=== PATIENT | male | born 1980 | race African-American/Black ===

== ENCOUNTER 2017-02-20 19:33 | Emergency (ER) | payer MEDICAID ==
[~2017-02-20] VITALS: Ht 170.2 cm; Wt 82.0 kg
[2017-02-20] MEDS ORDERED: KETOROLAC 30MG/ML VIAL IV STA (20:02)
[2017-02-20] MEDS ORDERED: ONDANSETRON HCL 4MG/2ML VIAL IV STA (20:02)
[2017-02-20] MEDS ORDERED: SODIUM CHLORIDE 0.9% 1,000 ML IV ONE (20:02)
[2017-02-20 20:22] LABS: BASOPHILS % 1.4 % (0.0-2.0); EOSINOPHILS % 3.3 % (0.0-5.0); HEMOGLOBIN. 12.5 g/dL (14.0-18.0); LYMPHOCYTES % 18.5 % (20.0-50.0); MEAN CORPUSCULAR HEMOGLOBIN 31.7 pg (28.0-32.0); MEAN CORPUSCULAR HGB CONC 33.7 g/dL (31.0-37.0); MEAN CORPUSCULAR VOLUME 93.9 fL (80.0-94.0); MEAN PLATELET VOLUME 7.7 fl (7.4-10.4); MONOCYTES % 8.6 % (2.0-8.0); NEUTROPHILS % 68.2 % (40.0-76.0); PLATELET 250 x1000/uL (130-400); RED BLOOD CELL COUNT 3.94 mill/uL (4.7-6.1); RED CELL DISTRIBUTION WIDTH 13.7 % (11.6-14.6); WHITE BLOOD COUNT 7.7 x1000/uL (4.5-11.0)
[2017-02-20 20:25] LABS: CHLORIDE 106 mEq/L (98-107); INDEX HEMOLYSI 1 (1-3); INDEX ICTERIC 1 (1-4); INDEX LIPEMIC 1 (1-3)
[2017-02-20 20:28] LABS: PROTHROMBIN TIME 10.6 sec
[2017-02-20 20:30] LABS: ALBUMIN 3.3 g/dL (3.4-5.0); ANION GAP 11; CALCIUM 8.6 mg/dL (8.5-10.1); CARBON DIOXIDE 29 mEq/L (21-32); UREA NITROGEN BLOOD 10 mg/dL (7-21)
[2017-02-20 20:35] LABS: ALANINE AMINOTRANSFERASE 132 IU/L (13-61); eGFR > 60 mL/min (>60)
[2017-02-20 22:01] VITALS: BP 128/96
== END 2017-02-21 01:34 | disposition home or self-care (01) ==
LOC: ER 19:34
DX: R51 Headache (principal); R07.89 Other chest pain; I10 Essential (primary) hypertension; Z88.6 Allergy status to analgesic agent
CPT/HCPCS: 36415; 70450; 71010; 80053; 85025; 85610; 93005; 96361; 96374; 96375; 99285; J1885; J2405; J7030; Z7610

== ENCOUNTER 2017-02-28 16:52 | Emergency (ER) | payer MEDICAID ==
[~2017-02-28] VITALS: Ht 170.2 cm; Wt 75.0 kg
[2017-02-28] MEDS ORDERED: KETOROLAC 60MG/2ML VIAL IM ONE (17:45)
[2017-02-28 18:05] VITALS: BP 116/83
[2017-02-28] MEDS ORDERED: CYCLOBENZAPRINE 10MG TABLET PO ONE (18:15)
[2017-02-28] MEDS ORDERED: CYCLOBENZAPRINE 10MG TABLET PO SCH (22:00)
== END 2017-02-28 19:45 | disposition home or self-care (01) ==
LOC: ER 16:53
DX: S16.1XXA Strain of muscle, fascia and tendon at neck level, initial encounter (principal); I10 Essential (primary) hypertension; X58.XXXA Exposure to other specified factors, initial encounter; Y93.89 Activity, other specified; Y99.8 Other external cause status; Y92.89 Other specified places as the place of occurrence of the external cause; Z88.6 Allergy status to analgesic agent
CPT/HCPCS: 96372; 99283; J1885

== ENCOUNTER 2017-03-13 09:45 | Emergency (ER) | payer MEDICAID ==
[~2017-03-13] VITALS: Ht 175.3 cm; Wt 75.0 kg
[2017-03-13] MEDS ORDERED: SODIUM CHLORIDE 0.9% 1,000 ML IV ONE (10:06)
[2017-03-13] MEDS ORDERED: DIPHENHYDRAMINE 25MG CAPSULE PO ONE (10:15)
[2017-03-13] MEDS ORDERED: PROCHLORPERAZINE MALEATE 10MG TABLET PO ONE (10:15)
[2017-03-13 10:24] LABS: BASOPHILS % 1.1 % (0.0-2.0); EOSINOPHILS % 2.1 % (0.0-5.0); HEMATOCRIT. 38.3 % (42.0-52.0); HEMOGLOBIN. 13.2 g/dL (14.0-18.0); LYMPHOCYTES % 15.5 % (20.0-50.0); MEAN CORPUSCULAR HEMOGLOBIN 32.2 pg (28.0-32.0); MEAN CORPUSCULAR HGB CONC 34.4 g/dL (31.0-37.0); MEAN CORPUSCULAR VOLUME 93.6 fL (80.0-94.0); MEAN PLATELET VOLUME 7.5 fl (7.4-10.4); MONOCYTES % 12.2 % (2.0-8.0); NEUTROPHILS % 69.1 % (40.0-76.0); PLATELET 216 x1000/uL (130-400); RED BLOOD CELL COUNT 4.08 mill/uL (4.7-6.1); RED CELL DISTRIBUTION WIDTH 13.8 % (11.6-14.6); WHITE BLOOD COUNT 5.5 x1000/uL (4.5-11.0)
[2017-03-13 10:33] LABS: PROTHROMBIN TIME 10.6 sec
[2017-03-13 10:41] LABS: ALANINE AMINOTRANSFERASE 51 IU/L (13-61); ALBUMIN 3.5 g/dL (3.4-5.0); ANION GAP 11; CALCIUM 8.8 mg/dL (8.5-10.1); CARBON DIOXIDE 29 mEq/L (21-32); CHLORIDE 105 mEq/L (98-107); INDEX HEMOLYSI 1 (1-3); INDEX ICTERIC 1 (1-4); INDEX LIPEMIC 1 (1-3); NT PRO B-TYPE NATRIURETIC PEP 18 pg/mL (5-125); TROPONIN I < 0.02 ng/mL (0.00-0.04); UREA NITROGEN BLOOD 9 mg/dL (7-21); eGFR > 60 mL/min (>60)
[2017-03-13 10:57] LABS: CLARITY URINE CLEAR (CLEAR); COLOR URINE YELLOW (YELLOW); GLUCOSE URINE NEGATIVE (NEGATIVE); KETONES URINE NEGATIVE (NEGATIVE); LEUKOCYTE ESTERASE URINE NEGATIVE (NEGATIVE); NITRITE URINE NEGATIVE (NEGATIVE); OCCULT BLOOD URINE NEGATIVE (NEGATIVE); PH URINE 6.5 (4.5-8.0); PROTEIN URINE NEGATIVE (NEGATIVE); SPECIFIC GRAVITY URINE 1.006 (1.005-1.030); UROBILINOGEN URINE 0.2 E.U./dL (0.2-1.0)
[2017-03-13] MEDS ORDERED: KETOROLAC 30MG/ML VIAL IV ONE (12:15)
[2017-03-13 13:34] VITALS: BP 128/67
== END 2017-03-13 13:48 | disposition home or self-care (01) ==
LOC: ER 10:02
DX: R51 Headache (principal); R53.1 Weakness; I10 Essential (primary) hypertension; H53.8 Other visual disturbances; R05 Cough; F17.200 Nicotine dependence, unspecified, uncomplicated; Z88.6 Allergy status to analgesic agent
CPT/HCPCS: 36415; 70450; 71010; 80053; 81003; 83880; 84484; 85025; 85610; 93005; 96361; 96374; 99285; J1885; J7030; Z7610; Q0163; Q0164

== ENCOUNTER 2017-03-14 16:07 | Emergency (ER) | payer MEDICAID ==
[~2017-03-14] VITALS: Ht 175.3 cm; Wt 75.0 kg
[2017-03-14] MEDS ORDERED: SODIUM CHLORIDE 0.9% 1,000 ML IV ONE (19:36)
[2017-03-14 19:56] LABS: BASOPHILS % 1.1 % (0.0-2.0); EOSINOPHILS % 1.4 % (0.0-5.0); HEMATOCRIT. 39.2 % (42.0-52.0); HEMOGLOBIN. 13.4 g/dL (14.0-18.0); LYMPHOCYTES % 21.9 % (20.0-50.0); MEAN CORPUSCULAR HGB CONC 34.3 g/dL (31.0-37.0); MEAN CORPUSCULAR VOLUME 93.3 fL (80.0-94.0); MONOCYTES % 10.5 % (2.0-8.0); NEUTROPHILS % 65.1 % (40.0-76.0); PLATELET 206 x1000/uL (130-400); RED CELL DISTRIBUTION WIDTH 13.7 % (11.6-14.6); WHITE BLOOD COUNT 6.4 x1000/uL (4.5-11.0)
[2017-03-14 19:59] LABS: CHLORIDE 107 mEq/L (98-107); INDEX HEMOLYSI 1 (1-3); INDEX ICTERIC 1 (1-4); INDEX LIPEMIC 1 (1-3)
[2017-03-14 20:04] LABS: ANION GAP 15; CARBON DIOXIDE 25 mEq/L (21-32); UREA NITROGEN BLOOD 10 mg/dL (7-21); eGFR > 60 mL/min (>60)
[2017-03-14] MEDS ORDERED: ACETAMINOPHEN 325MG TABLET PO ONE (21:30)
[2017-03-14 22:10] LABS: CLARITY URINE CLEAR (CLEAR); COLOR URINE YELLOW (YELLOW); GLUCOSE URINE NEGATIVE (NEGATIVE); KETONES URINE NEGATIVE (NEGATIVE); LEUKOCYTE ESTERASE URINE NEGATIVE (NEGATIVE); NITRITE URINE NEGATIVE (NEGATIVE); OCCULT BLOOD URINE NEGATIVE (NEGATIVE); PROTEIN URINE NEGATIVE (NEGATIVE); SPECIFIC GRAVITY URINE 1.007 (1.005-1.030); UROBILINOGEN URINE 0.2 E.U./dL (0.2-1.0)
[2017-03-14 22:27] LABS: *AMPHETAMINES SCREEN URINE NEGATIVE (NEGATIVE); *BARBITURATES SCREEN URINE NEGATIVE (NEGATIVE); *BENZODIAZEPINES SCREEN URINE NEGATIVE (NEGATIVE); *COCAINE SCREEN URINE NEGATIVE (NEGATIVE); CANNABINOID URINE SCREEN NEGATIVE (NEGATIVE); ECSTASY MDMA SCREEN URINE NEGATIVE (NEGATIVE); METHADONE URINE SCREEN NEGATIVE (NEGATIVE); OPIATES URINE SCREEN NEGATIVE (NEGATIVE); PHENCYCLIDINE URINE SCREEN NEGATIVE (NEGATIVE)
[2017-03-14 23:00] VITALS: BP 148/99
== END 2017-03-14 23:15 | disposition home or self-care (01) ==
LOC: ER 16:35
DX: R42 Dizziness and giddiness (principal); R53.1 Weakness; R35.8 Other polyuria; I10 Essential (primary) hypertension; Z88.6 Allergy status to analgesic agent
CPT/HCPCS: 36415; 71010; 80048; 80305; 81003; 82962; 85025; 93005; 99285; J7030

== ENCOUNTER 2017-03-31 21:07 | Emergency (ER) | payer MEDICAID ==
[~2017-03-31] VITALS: Ht 175.3 cm; Wt 75.0 kg
[2017-03-31] MEDS ORDERED: SODIUM CHLORIDE 0.9% 1,000 ML IV ONE (22:54)
[2017-03-31] MEDS ORDERED: HYDROCODONE/ACETAMINOPHEN 5/325MG TABLET PO ONE (23:00)
[2017-03-31 23:08] LABS: BASOPHILS % 0.9 % (0.0-2.0); EOSINOPHILS % 1.8 % (0.0-5.0); HEMATOCRIT. 37.7 % (42.0-52.0); MEAN CORPUSCULAR HEMOGLOBIN 32.3 pg (28.0-32.0); MEAN CORPUSCULAR HGB CONC 34.4 g/dL (31.0-37.0); MEAN CORPUSCULAR VOLUME 93.8 fL (80.0-94.0); MEAN PLATELET VOLUME 7.4 fl (7.4-10.4); MONOCYTES % 10.5 % (2.0-8.0); NEUTROPHILS % 72.8 % (40.0-76.0); PLATELET 251 x1000/uL (130-400); RED BLOOD CELL COUNT 4.02 mill/uL (4.7-6.1); RED CELL DISTRIBUTION WIDTH 14.7 % (11.6-14.6); WHITE BLOOD COUNT 8.9 x1000/uL (4.5-11.0)
[2017-03-31 23:13] LABS: CHLORIDE 104 mEq/L (98-107); INDEX HEMOLYSI 1 (1-3); INDEX ICTERIC 1 (1-4); INDEX LIPEMIC 1 (1-3)
[2017-03-31 23:21] LABS: ALANINE AMINOTRANSFERASE 51 IU/L (13-61); ALBUMIN 3.7 g/dL (3.4-5.0); ANION GAP 11; CALCIUM 8.4 mg/dL (8.5-10.1); CARBON DIOXIDE 30 mEq/L (21-32); UREA NITROGEN BLOOD 9 mg/dL (7-21); eGFR > 60 mL/min (>60)
[2017-03-31 23:57] LABS: *AMPHETAMINES SCREEN URINE NEGATIVE (NEGATIVE); *BARBITURATES SCREEN URINE NEGATIVE (NEGATIVE); *BENZODIAZEPINES SCREEN URINE NEGATIVE (NEGATIVE); *COCAINE SCREEN URINE NEGATIVE (NEGATIVE); CANNABINOID URINE SCREEN NEGATIVE (NEGATIVE); ECSTASY MDMA SCREEN URINE NEGATIVE (NEGATIVE); METHADONE URINE SCREEN NEGATIVE (NEGATIVE); OPIATES URINE SCREEN NEGATIVE (NEGATIVE); PHENCYCLIDINE URINE SCREEN NEGATIVE (NEGATIVE)
[2017-04-01] MEDS ORDERED: TRAMADOL 50MG TABLET PO ONE (02:15)
[2017-04-01 02:44] VITALS: BP 153/98
[2017-04-05] MEDS ORDERED: LORA1TAB PO (01:35)
[2017-04-05] MEDS ORDERED: FERR-63 PO (01:35)
[2017-04-05] MEDS ORDERED: LISI10TA5 PO (01:35)
== END 2017-04-01 03:17 | disposition home or self-care (01) ==
LOC: ER 21:08
DX: S13.9XXA Sprain of joints and ligaments of unspecified parts of neck, initial encounter (principal); I10 Essential (primary) hypertension; F17.210 Nicotine dependence, cigarettes, uncomplicated; Z88.6 Allergy status to analgesic agent; X58.XXXA Exposure to other specified factors, initial encounter; Y92.018 Other place in single-family (private) house as the place of occurrence of the external cause
CPT/HCPCS: 36415; 70450; 72125; 80053; 80305; 85025; 93005; 96360; 99285; J7030

== ENCOUNTER 2017-05-07 23:59 | Emergency (ER) | payer MEDICAID ==
[~2017-05-07] VITALS: Ht 175.3 cm; Wt 78.0 kg
[~2017-05-07 23:59] MED LIST: FERR-63 PO; LISI10TA5 PO; LORA1TAB PO
[2017-05-08] MEDS ORDERED: IBUPROFEN 600MG TABLET PO STA (00:30)
[2017-05-08 00:59] LABS: BASOPHILS % 1.3 % (0.0-2.0); EOSINOPHILS % 1.8 % (0.0-5.0); HEMATOCRIT. 39.8 % (42.0-52.0); HEMOGLOBIN. 13.7 g/dL (14.0-18.0); MEAN CORPUSCULAR HEMOGLOBIN 32.3 pg (28.0-32.0); MEAN PLATELET VOLUME 7.2 fl (7.4-10.4); MONOCYTES % 9.5 % (2.0-8.0); NEUTROPHILS % 71.4 % (40.0-76.0); PLATELET 349 x1000/uL (130-400); RED BLOOD CELL COUNT 4.23 mill/uL (4.7-6.1); RED CELL DISTRIBUTION WIDTH 14.7 % (11.6-14.6)
[2017-05-08 01:03] LABS: INR 1.1
[2017-05-08 01:09] LABS: CARBON DIOXIDE 30 mEq/L (21-32); CHLORIDE 104 mEq/L (98-107)
[2017-05-08 03:14] VITALS: BP 148/98
== END 2017-05-08 03:14 | disposition home or self-care (01) ==
LOC: ER 23:59
DX: R07.89 Other chest pain (principal); R51 Headache; F41.9 Anxiety disorder, unspecified; I10 Essential (primary) hypertension; Z88.6 Allergy status to analgesic agent; Z87.891 Personal history of nicotine dependence
CPT/HCPCS: 36415; 70450; 71010; 80053; 85025; 85610; 93005; 99285; Z7610

== ENCOUNTER 2017-05-08 03:33 | Emergency (ER) | payer MEDICAID ==
[~2017-05-08] VITALS: Ht 175.3 cm; Wt 79.0 kg
[2017-05-08 03:50] VITALS: BP 134/77
== END 2017-05-08 07:19 | disposition home or self-care (01) ==
LOC: ER 07:15
DX: R07.89 Other chest pain (principal); R51 Headache; F17.200 Nicotine dependence, unspecified, uncomplicated; I10 Essential (primary) hypertension; Z88.8 Allergy status to other drugs, medicaments and biological substances
CPT/HCPCS: 93005; 99283

== ENCOUNTER 2017-05-08 20:28 | Emergency (ER) | payer MEDICAID ==
[~2017-05-08] VITALS: Ht 170.2 cm; Wt 80.0 kg
[2017-05-08] MEDS ORDERED: SODIUM CHLORIDE 0.9% 1,000 ML IV ONE (21:16)
[2017-05-08] MEDS ORDERED: KETOROLAC 30MG/ML VIAL IV STA (21:16)
[2017-05-08] MEDS ORDERED: ASPIRIN 81MG TABLET PO ONE (21:30)
[2017-05-08] MEDS ORDERED: NITROGLYCERIN OINT 1GM/INCH UDPKT TD ONE (21:30)
[2017-05-08 21:45] LABS: BASOPHILS % 1.1 % (0.0-2.0); EOSINOPHILS % 2.3 % (0.0-5.0); HEMATOCRIT. 36.7 % (42.0-52.0); HEMOGLOBIN. 12.6 g/dL (14.0-18.0); LYMPHOCYTES % 15.6 % (20.0-50.0); MEAN CORPUSCULAR HEMOGLOBIN 32.7 pg (28.0-32.0); MEAN PLATELET VOLUME 7.2 fl (7.4-10.4); MONOCYTES % 10.5 % (2.0-8.0); NEUTROPHILS % 70.5 % (40.0-76.0); PLATELET 296 x1000/uL (130-400); RED BLOOD CELL COUNT 3.87 mill/uL (4.7-6.1); RED CELL DISTRIBUTION WIDTH 14.7 % (11.6-14.6)
[2017-05-08 21:50] LABS: CHLORIDE 106 mEq/L (98-107)
[2017-05-08 21:52] LABS: CARBON DIOXIDE 30 mEq/L (21-32)
[2017-05-08 21:53] LABS: D-DIMER < 0.19 mg/L FEU (<0.50); PROTHROMBIN TIME 10.7 sec
[2017-05-08 21:57] LABS: ETHANOL BLOOD < 10 mg/dL
[2017-05-08 21:59] LABS: TROPONIN I < 0.02 ng/mL (0.00-0.04)
[2017-05-08 22:00] LABS: *AMPHETAMINES SCREEN URINE NEGATIVE (NEGATIVE); *BARBITURATES SCREEN URINE NEGATIVE (NEGATIVE); *BENZODIAZEPINES SCREEN URINE NEGATIVE (NEGATIVE); *COCAINE SCREEN URINE NEGATIVE (NEGATIVE); CANNABINOID URINE SCREEN NEGATIVE (NEGATIVE); METHADONE URINE SCREEN NEGATIVE (NEGATIVE); OPIATES URINE SCREEN NEGATIVE (NEGATIVE); PHENCYCLIDINE URINE SCREEN NEGATIVE (NEGATIVE)
[2017-05-08 23:00] VITALS: BP 158/71
== END 2017-05-09 00:30 | disposition home or self-care (01) ==
LOC: ER 20:42
DX: R07.9 Chest pain, unspecified (principal); I10 Essential (primary) hypertension
CPT/HCPCS: 36415; 71010; 80053; 80305; 83690; 83880; 84484; 85025; 85379; 85610; 93005; 96361; 96374; 99285; G0482; J1885; J7030; Z7610

== ENCOUNTER 2017-05-09 11:08 | Emergency (ER) | payer MEDICAID ==
[~2017-05-09] VITALS: Ht 172.7 cm; Wt 75.0 kg
[2017-05-09] MEDS ORDERED: IBUPROFEN 600MG TABLET PO STA (11:27)
[2017-05-09 12:01] LABS: EOSINOPHILS % 1.2 % (0.0-5.0); HEMATOCRIT. 39.5 % (42.0-52.0); HEMOGLOBIN. 13.5 g/dL (14.0-18.0); MEAN CORPUSCULAR HEMOGLOBIN 32.5 pg (28.0-32.0); MEAN CORPUSCULAR VOLUME 94.9 fL (80.0-94.0); MEAN PLATELET VOLUME 6.9 fl (7.4-10.4); MONOCYTES % 8.7 % (2.0-8.0); NEUTROPHILS % 76.1 % (40.0-76.0); PLATELET 334 x1000/uL (130-400); RED BLOOD CELL COUNT 4.16 mill/uL (4.7-6.1); RED CELL DISTRIBUTION WIDTH 14.9 % (11.6-14.6)
[2017-05-09 12:14] LABS: CARBON DIOXIDE 29 mEq/L (21-32); CHLORIDE 108 mEq/L (98-107)
[2017-05-09 14:05] VITALS: BP 165/87
== END 2017-05-09 14:08 | disposition home or self-care (01) ==
LOC: ER 11:09
DX: R07.89 Other chest pain (principal); R51 Headache; I10 Essential (primary) hypertension
CPT/HCPCS: 36415; 70450; 71010; 80053; 85025; 93005; 99285

== ENCOUNTER 2017-05-10 12:03 | Inpatient (IN) | payer MEDICAID ==
[~2017-05-10] VITALS: Ht 175.3 cm; Wt 76.2 kg
[2017-05-10] MEDS ORDERED: ONDANSETRON HCL 4MG/2ML VIAL IV STA (12:58)
[2017-05-10] MEDS ORDERED: SODIUM CHLORIDE 0.9% 1,000 ML IV ONE (12:58)
[2017-05-10 13:17] LABS: BASOPHILS % 0.9 % (0.0-2.0); EOSINOPHILS % 0.7 % (0.0-5.0); HEMATOCRIT. 41.2 % (42.0-52.0); HEMOGLOBIN. 14.1 g/dL (14.0-18.0); LYMPHOCYTES % 10.1 % (20.0-50.0); MEAN CORPUSCULAR HEMOGLOBIN 32.6 pg (28.0-32.0); MONOCYTES % 7.4 % (2.0-8.0); NEUTROPHILS % 80.9 % (40.0-76.0); PLATELET 324 x1000/uL (130-400); RED BLOOD CELL COUNT 4.34 mill/uL (4.7-6.1); RED CELL DISTRIBUTION WIDTH 14.7 % (11.6-14.6)
[2017-05-10 13:21] LABS: CHLORIDE 105 mEq/L (98-107)
[2017-05-10 13:22] LABS: PROTHROMBIN TIME 10.4 sec
[2017-05-10 13:26] LABS: CARBON DIOXIDE 31 mEq/L (21-32); ETHANOL BLOOD < 10 mg/dL
[2017-05-10 13:46] LABS: CLARITY URINE CLEAR (CLEAR); COLOR URINE YELLOW (YELLOW); KETONES URINE NEGATIVE (NEGATIVE); LEUKOCYTE ESTERASE URINE NEGATIVE (NEGATIVE); NITRITE URINE NEGATIVE (NEGATIVE); OCCULT BLOOD URINE NEGATIVE (NEGATIVE); PH URINE 7.5 (4.5-8.0); PROTEIN URINE NEGATIVE (NEGATIVE); SPECIFIC GRAVITY URINE 1.017 (1.005-1.030); UROBILINOGEN URINE 0.2 E.U./dL (0.2-1.0)
[2017-05-10 14:13] LABS: *AMPHETAMINES SCREEN URINE NEGATIVE (NEGATIVE); *BARBITURATES SCREEN URINE NEGATIVE (NEGATIVE); *BENZODIAZEPINES SCREEN URINE NEGATIVE (NEGATIVE); *COCAINE SCREEN URINE NEGATIVE (NEGATIVE); CANNABINOID URINE SCREEN NEGATIVE (NEGATIVE); METHADONE URINE SCREEN NEGATIVE (NEGATIVE); OPIATES URINE SCREEN NEGATIVE (NEGATIVE); PHENCYCLIDINE URINE SCREEN NEGATIVE (NEGATIVE)
[2017-05-10 15:25] LABS: TROPONIN I < 0.02 ng/mL (0.00-0.04)
[2017-05-10] MEDS ORDERED: LORAZEPAM 0.5MG TABLET PO ONE (18:00)
[2017-05-11] MEDS: HYDROCODONE/ACETAMINOPHEN 10/325MG TABLET PO PRN ×2 (00:11→16:41)
[2017-05-11] MEDS: LORAZEPAM 1MG TABLET PO PRN ×2 (00:11→13:39)
[2017-05-11 07:01] LABS: BASOPHILS % 1.2 % (0.0-2.0); EOSINOPHILS % 2.6 % (0.0-5.0); HEMOGLOBIN. 12.6 g/dL (14.0-18.0); LYMPHOCYTES % 22.2 % (20.0-50.0); MEAN CORPUSCULAR HEMOGLOBIN 32.7 pg (28.0-32.0); MEAN CORPUSCULAR VOLUME 94.1 fL (80.0-94.0); MEAN PLATELET VOLUME 7.5 fl (7.4-10.4); MONOCYTES % 12.4 % (2.0-8.0); NEUTROPHILS % 61.6 % (40.0-76.0); PLATELET 284 x1000/uL (130-400); RED BLOOD CELL COUNT 3.86 mill/uL (4.7-6.1)
[2017-05-11 08:07] LABS: HEMATOCRIT. 37.3 % (42.0-52.0)
[2017-05-11] MEDS: ENOXAPARIN 40MG/0.4ML SYR SUBCUT SCH (09:00)
[2017-05-11] MEDS: LISINOPRIL 10MG TABLET PO SCH (09:00)
[2017-05-11] MEDS: PREDNISONE 5MG TABLET PO SCH (13:07)
[2017-05-11] MEDS: NEOMYCIN-POLYMYXIN B-HYDROCORTISONE 1% OTIC SOLN 10ML RIGHT EAR SCH ×2 (13:08→16:41)
[2017-05-11] MEDS: CYCLOBENZAPRINE 10MG TABLET PO SCH ×2 (13:39→21:20)
[2017-05-12] MEDS: NEOMYCIN-POLYMYXIN B-HYDROCORTISONE 1% OTIC SOLN 10ML RIGHT EAR SCH ×4 (00:06→17:05)
[2017-05-12] MEDS: HYDROCODONE/ACETAMINOPHEN 10/325MG TABLET PO PRN ×3 (00:06→22:14)
[2017-05-12] MEDS: LORAZEPAM 1MG TABLET PO PRN ×2 (01:16→18:40)
[2017-05-12] MEDS: CYCLOBENZAPRINE 10MG TABLET PO SCH ×3 (06:10→22:13)
[2017-05-12] MEDS: PREDNISONE 5MG TABLET PO SCH (08:13)
[2017-05-12] MEDS: LISINOPRIL 10MG TABLET PO SCH (08:14)
[2017-05-12] MEDS: ENOXAPARIN 40MG/0.4ML SYR SUBCUT SCH (08:15)
[2017-05-13] MEDS: NEOMYCIN-POLYMYXIN B-HYDROCORTISONE 1% OTIC SOLN 10ML RIGHT EAR SCH ×4 (00:38→17:26)
[2017-05-13] MEDS: HYDROCODONE/ACETAMINOPHEN 10/325MG TABLET PO PRN ×2 (05:12→20:05)
[2017-05-13] MEDS: CYCLOBENZAPRINE 10MG TABLET PO SCH ×3 (06:27→21:09)
[2017-05-13] MEDS: ENOXAPARIN 40MG/0.4ML SYR SUBCUT SCH (09:02)
[2017-05-13] MEDS: PREDNISONE 5MG TABLET PO SCH (09:02)
[2017-05-13] MEDS: LISINOPRIL 10MG TABLET PO SCH (09:02)
[2017-05-13] MEDS: LORAZEPAM 1MG TABLET PO PRN (12:50)
[2017-05-13] MEDS ORDERED: LORAZEPAM 1MG TABLET PO PRN (22:09)
[2017-05-13] MEDS: ONDANSETRON HCL 4MG/2ML VIAL IV PRN (22:17)
[2017-05-14] MEDS: NEOMYCIN-POLYMYXIN B-HYDROCORTISONE 1% OTIC SOLN 10ML RIGHT EAR SCH ×3 (00:13→05:55)
[2017-05-14] MEDS: CYCLOBENZAPRINE 10MG TABLET PO SCH (05:54)
[2017-05-14] MEDS: LISINOPRIL 10MG TABLET PO SCH (09:00)
[2017-05-14] MEDS: ENOXAPARIN 40MG/0.4ML SYR SUBCUT SCH (09:39)
[2017-05-14] MEDS: IBUPROFEN 600MG TABLET PO PRN (13:54)
[2017-05-14] MEDS ORDERED: SODIUM CHLORIDE 0.9% 1,000 ML IV ONE (14:30)
[2017-05-14] MEDS: ALPRAZOLAM 0.5 MG TABLET PO PRN (16:01)
[2017-05-14] MEDS ORDERED: HYDROCODONE/ACETAMINOPHEN 5/325MG TABLET PO PRN (16:30)
[2017-05-14] MEDS: HYDROCODONE/APAP 7.5/325MG 1 TAB TABLET PO PRN (23:09)
[2017-05-14] MEDS: LORAZEPAM 2MG/ML CPJ IV PRN (23:10)
[2017-05-15] MEDS: HYDROCODONE/APAP 7.5/325MG 1 TAB TABLET PO PRN ×3 (05:10→22:41)
[2017-05-15] MEDS: ENOXAPARIN 40MG/0.4ML SYR SUBCUT SCH (08:55)
[2017-05-15] MEDS: IBUPROFEN 600MG TABLET PO PRN ×2 (08:59→20:45)
[2017-05-15] MEDS: LORAZEPAM 2MG/ML CPJ IV PRN (17:37)
[2017-05-15] MEDS: ALPRAZOLAM 0.5 MG TABLET PO PRN (21:17)
[2017-05-16] MEDS: LORAZEPAM 2MG/ML CPJ IV PRN ×3 (04:15→21:50)
[2017-05-16] MEDS: ENOXAPARIN 40MG/0.4ML SYR SUBCUT SCH (08:38)
[2017-05-16] MEDS: HYDROCODONE/APAP 7.5/325MG 1 TAB TABLET PO PRN ×2 (12:25→19:45)
[2017-05-16] MEDS: IBUPROFEN 600MG TABLET PO PRN (17:08)
[2017-05-16] MEDS ORDERED: OFLOXACIN EACH EAR SCH (18:30)
[2017-05-17] MEDS: IBUPROFEN 600MG TABLET PO PRN ×3 (00:38→22:58)
[2017-05-17] MEDS: ALPRAZOLAM 0.5 MG TABLET PO PRN ×2 (00:42→22:57)
[2017-05-17] MEDS: HYDROCODONE/APAP 7.5/325MG 1 TAB TABLET PO PRN ×3 (03:48→19:38)
[2017-05-17] MEDS: LORAZEPAM 2MG/ML CPJ IV PRN ×2 (05:42→19:14)
[2017-05-17] MEDS: ENOXAPARIN 40MG/0.4ML SYR SUBCUT SCH (08:55)
[2017-05-17] MEDS: ONDANSETRON HCL 4MG/2ML VIAL IV PRN (19:17)
[2017-05-18] MEDS: LORAZEPAM 2MG/ML CPJ IV PRN ×2 (04:05→15:17)
[2017-05-18] MEDS: ENOXAPARIN 40MG/0.4ML SYR SUBCUT SCH (08:38)
[2017-05-18] MEDS: IBUPROFEN 600MG TABLET PO PRN ×2 (09:07→15:17)
[2017-05-18] MEDS: HYDROCODONE/APAP 7.5/325MG 1 TAB TABLET PO PRN ×2 (12:23→20:36)
[2017-05-18] MEDS: ONDANSETRON HCL 4MG/2ML VIAL IV PRN (21:23)
[2017-05-19] MEDS: IBUPROFEN 600MG TABLET PO PRN ×2 (00:01→11:25)
[2017-05-19] MEDS: ALPRAZOLAM 0.5 MG TABLET PO PRN ×2 (02:31→22:28)
[2017-05-19] MEDS: HYDROCODONE/APAP 7.5/325MG 1 TAB TABLET PO PRN ×3 (07:09→21:05)
[2017-05-19] MEDS: ENOXAPARIN 40MG/0.4ML SYR SUBCUT SCH ×2 (08:52→21:04)
[2017-05-19] MEDS: ONDANSETRON HCL 4MG/2ML VIAL IV PRN ×2 (13:15→22:16)
[2017-05-19] MEDS: LORAZEPAM 2MG/ML CPJ IV PRN ×2 (15:33)
[2017-05-19] MEDS: BACLOFEN 10MG TABLET PO SCH (21:05)
[2017-05-20] MEDS: LORAZEPAM 2MG/ML CPJ IV PRN ×2 (01:44→16:11)
[2017-05-20] MEDS: BACLOFEN 10MG TABLET PO SCH ×2 (08:06→20:57)
[2017-05-20] MEDS: IBUPROFEN 600MG TABLET PO PRN (09:43)
[2017-05-20] MEDS: DOCUSATE SODIUM 100MG CAPSULE PO SCH (09:43)
[2017-05-20 11:14] LABS: BASOPHILS % 1.1 % (0.0-2.0); EOSINOPHILS % 2.6 % (0.0-5.0); HEMATOCRIT. 39.1 % (42.0-52.0); HEMOGLOBIN. 13.5 g/dL (14.0-18.0); MEAN CORPUSCULAR HEMOGLOBIN 32.8 pg (28.0-32.0); MEAN CORPUSCULAR VOLUME 95.4 fL (80.0-94.0); MEAN PLATELET VOLUME 7.7 fl (7.4-10.4); MONOCYTES % 12.6 % (2.0-8.0); NEUTROPHILS % 70.7 % (40.0-76.0); PLATELET 234 x1000/uL (130-400); RED CELL DISTRIBUTION WIDTH 14.6 % (11.6-14.6)
[2017-05-20 11:36] LABS: CARBON DIOXIDE 30 mEq/L (21-32); CHLORIDE 105 mEq/L (98-107); TROPONIN I < 0.02 ng/mL (0.00-0.04)
[2017-05-20] MEDS: ONDANSETRON HCL 4MG/2ML VIAL IV PRN ×2 (13:41→20:48)
[2017-05-20] MEDS: HYDROCODONE/ACETAMINOPHEN 5/325MG TABLET PO PRN ×2 (13:56→21:12)
[2017-05-20] MEDS: ALPRAZOLAM 0.5 MG TABLET PO PRN (22:47)
[2017-05-21] MEDS: IBUPROFEN 600MG TABLET PO PRN ×3 (01:30→20:16)
[2017-05-21] MEDS: LORAZEPAM 2MG/ML CPJ IV PRN ×2 (04:23→16:48)
[2017-05-21] MEDS: DOCUSATE SODIUM 100MG CAPSULE PO SCH (08:35)
[2017-05-21] MEDS: ENOXAPARIN 40MG/0.4ML SYR SUBCUT SCH (08:35)
[2017-05-21] MEDS: BACLOFEN 10MG TABLET PO SCH ×2 (08:36→20:16)
[2017-05-21] MEDS: HYDROCODONE/ACETAMINOPHEN 5/325MG TABLET PO PRN ×2 (11:13→22:58)
[2017-05-21] MEDS: ONDANSETRON HCL 4MG/2ML VIAL IV PRN (20:16)
[2017-05-22] MEDS: LORAZEPAM 2MG/ML CPJ IV PRN ×2 (01:51→13:33)
[2017-05-22] MEDS: ONDANSETRON HCL 4MG/2ML VIAL IV PRN ×2 (08:31→16:36)
[2017-05-22] MEDS: BACLOFEN 10MG TABLET PO SCH ×4 (08:33→20:03)
[2017-05-22] MEDS: HYDROCODONE/ACETAMINOPHEN 5/325MG TABLET PO PRN ×3 (08:34→20:04)
[2017-05-22] MEDS: DOCUSATE SODIUM 100MG CAPSULE PO SCH ×2 (08:34→16:36)
[2017-05-22] MEDS: ENOXAPARIN 40MG/0.4ML SYR SUBCUT SCH (08:36)
[2017-05-22] MEDS: ALPRAZOLAM 0.5 MG TABLET PO PRN (13:24)
[2017-05-22] MEDS: IBUPROFEN 600MG TABLET PO PRN ×2 (16:36→22:31)
[2017-05-23] MEDS: LORAZEPAM 2MG/ML CPJ IV PRN ×2 (02:20→18:01)
[2017-05-23] MEDS: HYDROCODONE/ACETAMINOPHEN 5/325MG TABLET PO PRN ×2 (06:34→15:30)
[2017-05-23] MEDS: BACLOFEN 10MG TABLET PO SCH (09:00)
[2017-05-23] MEDS: ALPRAZOLAM 0.5 MG TABLET PO PRN (09:21)
[2017-05-23] MEDS: ENOXAPARIN 40MG/0.4ML SYR SUBCUT SCH (09:21)
[2017-05-23] MEDS: IBUPROFEN 600MG TABLET PO PRN ×2 (09:22→18:01)
[2017-05-23] MEDS: DOCUSATE SODIUM 100MG CAPSULE PO SCH ×2 (09:22→18:01)
[2017-05-23] MEDS: ONDANSETRON HCL 4MG/2ML VIAL IV PRN (15:47)
[2017-05-23 17:23] VITALS: BP 108/76
[2017-09-12] MEDS ORDERED: ACET-2178 PO (21:47)
[2017-09-12] MEDS ORDERED: LISI-651 PO (21:47)
[2017-09-12] MEDS ORDERED: IBUP-2321 PO (21:47)
== END 2017-05-23 19:25 | DRG 347 ==
LOC: ER 12:13 → 8WST 17:04 → EDBEDREQ 17:05 → ENRESERV 20:17
PROVIDERS: ADMIT Internal Medicine; ATTEND Internal Medicine
DX: S13.9XXA Sprain of joints and ligaments of unspecified parts of neck, initial encounter (principal); K92.0 Hematemesis; R13.10 Dysphagia, unspecified; R04.2 Hemoptysis; K27.9 Peptic ulcer, site unspecified, unspecified as acute or chronic, without hemorrhage or perforation; D64.9 Anemia, unspecified; S16.1XXA Strain of muscle, fascia and tendon at neck level, initial encounter; I10 Essential (primary) hypertension; F32.9 Major depressive disorder, single episode, unspecified; E78.00 Pure hypercholesterolemia, unspecified; H60.90 Unspecified otitis externa, unspecified ear; F17.210 Nicotine dependence, cigarettes, uncomplicated; F41.9 Anxiety disorder, unspecified; G43.909 Migraine, unspecified, not intractable, without status migrainosus; H91.92 Unspecified hearing loss, left ear; J42 Unspecified chronic bronchitis; K59.00 Constipation, unspecified; K64.9 Unspecified hemorrhoids; W01.198A Fall on same level from slipping, tripping and stumbling with subsequent striking against other object, initial encounter; J32.9 Chronic sinusitis, unspecified; R30.0 Dysuria; M13.88 Other specified arthritis, other site; Z79.899 Other long term (current) drug therapy; Z82.49 Family history of ischemic heart disease and other diseases of the circulatory system; Z86.61 Personal history of infections of the central nervous system; Y93.89 Activity, other specified; Y92.89 Other specified places as the place of occurrence of the external cause; Y99.8 Other external cause status
CPT/HCPCS: 36415; 71010; 72146; 72148; 80053; 80305; 81003; 83690; 83735; 84443; 84484; 85025; 85379; 85610; 93005; 93306; 93880; 96361; 96374; 97116; 97163; 97166; 97530; 97535; 99285; C1893; G0482; J1650; J2060; J2405; J7030; J7512

== ENCOUNTER 2017-06-27 19:54 | Emergency (ER) | payer MEDICAID ==
[~2017-06-27] VITALS: Ht 175.3 cm; Wt 65.0 kg
[~2017-06-27 19:54] MED LIST changes: -LISI10TA5 PO
[2017-06-27 21:51] LABS: BASOPHILS % 1.1 % (0.0-2.0); EOSINOPHILS % 2.9 % (0.0-5.0); HEMATOCRIT. 41.2 % (42.0-52.0); HEMOGLOBIN. 14.1 g/dL (14.0-18.0); LYMPHOCYTES % 19.1 % (20.0-50.0); MEAN CORPUSCULAR HEMOGLOBIN 32.6 pg (28.0-32.0); MEAN CORPUSCULAR VOLUME 95.4 fL (80.0-94.0); MEAN PLATELET VOLUME 7.5 fl (7.4-10.4); MONOCYTES % 7.3 % (2.0-8.0); NEUTROPHILS % 69.6 % (40.0-76.0); PLATELET 264 x1000/uL (130-400); RED BLOOD CELL COUNT 4.32 mill/uL (4.7-6.1); RED CELL DISTRIBUTION WIDTH 13.4 % (11.6-14.6)
[2017-06-27 22:05] LABS: CARBON DIOXIDE 27 mEq/L (21-32); CHLORIDE 110 mEq/L (98-107)
[2017-06-28 01:30] VITALS: BP 131/79
== END 2017-06-28 02:23 ==
LOC: ER 20:11
DX: R51 Headache (principal); R11.2 Nausea with vomiting, unspecified; J44.9 Chronic obstructive pulmonary disease, unspecified
CPT/HCPCS: 36415; 70450; 71010; 80053; 85025; 99285; Z7610

== ENCOUNTER 2017-08-29 12:44 | Emergency (ER) | payer MEDICAID ==
[~2017-08-29] VITALS: Ht 175.3 cm; Wt 62.0 kg
[2017-08-29] MEDS ORDERED: MORPHINE SULFATE 4 MG/ML CPJ (NOT FOR IM USE) IV ONE (18:30)
[2017-08-29] MEDS ORDERED: ONDANSETRON HCL 4MG/2ML VIAL IV ONE (18:30)
[2017-08-29] MEDS ORDERED: SODIUM CHLORIDE 0.9% 1,000 ML IV ONE (18:30)
[2017-08-29 19:41] LABS: BASOPHILS % 0.6 % (0.0-2.0); EOSINOPHILS % 3.2 % (0.0-5.0); HEMATOCRIT. 44.1 % (42.0-52.0); HEMOGLOBIN. 15.1 g/dL (14.0-18.0); MEAN CORPUSCULAR HEMOGLOBIN 33.3 pg (28.0-32.0); MEAN CORPUSCULAR VOLUME 97.1 fL (80.0-94.0); MEAN PLATELET VOLUME 7.8 fl (7.4-10.4); MONOCYTES % 6.7 % (2.0-8.0); NEUTROPHILS % 67.5 % (40.0-76.0); PLATELET 229 x1000/uL (130-400); RED BLOOD CELL COUNT 4.54 mill/uL (4.7-6.1); RED CELL DISTRIBUTION WIDTH 14.5 % (11.6-14.6)
[2017-08-29 19:53] LABS: CARBON DIOXIDE 29 mEq/L (21-32); CHLORIDE 104 mEq/L (98-107)
[2017-08-29 19:55] LABS: TROPONIN I < 0.02 ng/mL (0.00-0.04)
[2017-08-29] MEDS ORDERED: ACETAMINOPHEN 325MG TABLET PO ONE (20:30)
[2017-08-29 21:00] VITALS: BP 142/77
[2017-08-29 21:00] LABS: CLARITY URINE CLEAR (CLEAR); COLOR URINE YELLOW (YELLOW); GLUCOSE URINE NEGATIVE (NEGATIVE); KETONES URINE NEGATIVE (NEGATIVE); LEUKOCYTE ESTERASE URINE NEGATIVE (NEGATIVE); NITRITE URINE NEGATIVE (NEGATIVE); OCCULT BLOOD URINE NEGATIVE (NEGATIVE); PROTEIN URINE NEGATIVE (NEGATIVE); SPECIFIC GRAVITY URINE 1.008 (1.005-1.030); UROBILINOGEN URINE 0.2 E.U./dL (0.2-1.0)
[2017-09-12] MEDS ORDERED: LISI-651 PO (21:47)
[2017-09-12] MEDS ORDERED: ACET-2178 PO (21:47)
[2017-09-12] MEDS ORDERED: IBUP-1636 PO (21:47)
== END 2017-08-29 21:43 | disposition home or self-care (01) ==
LOC: ER 12:44
DX: S09.90XA Unspecified injury of head, initial encounter (principal); R07.89 Other chest pain; R55 Syncope and collapse; K59.00 Constipation, unspecified; J44.9 Chronic obstructive pulmonary disease, unspecified; I10 Essential (primary) hypertension; W22.8XXA Striking against or struck by other objects, initial encounter; Y93.01 Activity, walking, marching and hiking; Y92.009 Unspecified place in unspecified non-institutional (private) residence as the place of occurrence of the external cause; Y99.8 Other external cause status
CPT/HCPCS: 36415; 70450; 71010; 74000; 80053; 81003; 83880; 84484; 85025; 93005; 99285; J7030

== ENCOUNTER 2017-08-30 17:23 | Emergency (ER) | payer MEDICAID ==
[~2017-08-30] VITALS: Ht 175.3 cm; Wt 85.0 kg
[2017-08-30 23:05] LABS: CLARITY URINE CLEAR (CLEAR); COLOR URINE YELLOW (YELLOW); GLUCOSE URINE NEGATIVE (NEGATIVE); KETONES URINE NEGATIVE (NEGATIVE); LEUKOCYTE ESTERASE URINE NEGATIVE (NEGATIVE); NITRITE URINE NEGATIVE (NEGATIVE); OCCULT BLOOD URINE NEGATIVE (NEGATIVE); PROTEIN URINE NEGATIVE (NEGATIVE); SPECIFIC GRAVITY URINE 1.008 (1.005-1.030); UROBILINOGEN URINE 0.2 E.U./dL (0.2-1.0)
[2017-08-30 23:17] LABS: *AMPHETAMINES SCREEN URINE NEGATIVE (NEGATIVE); *BARBITURATES SCREEN URINE NEGATIVE (NEGATIVE); *BENZODIAZEPINES SCREEN URINE NEGATIVE (NEGATIVE); *COCAINE SCREEN URINE NEGATIVE (NEGATIVE); CANNABINOID URINE SCREEN NEGATIVE (NEGATIVE); METHADONE URINE SCREEN NEGATIVE (NEGATIVE); OPIATES URINE SCREEN NEGATIVE (NEGATIVE); PHENCYCLIDINE URINE SCREEN NEGATIVE (NEGATIVE)
[2017-08-30 23:28] LABS: BASOPHILS % 1.1 % (0.0-2.0); EOSINOPHILS % 4.6 % (0.0-5.0); HEMATOCRIT. 39.1 % (42.0-52.0); HEMOGLOBIN. 13.3 g/dL (14.0-18.0); LYMPHOCYTES % 27.2 % (20.0-50.0); MEAN CORPUSCULAR HEMOGLOBIN 33.1 pg (28.0-32.0); MEAN PLATELET VOLUME 7.6 fl (7.4-10.4); MONOCYTES % 7.4 % (2.0-8.0); NEUTROPHILS % 59.7 % (40.0-76.0); PLATELET 228 x1000/uL (130-400); RED BLOOD CELL COUNT 4.03 mill/uL (4.7-6.1); RED CELL DISTRIBUTION WIDTH 14.5 % (11.6-14.6)
[2017-08-30 23:31] LABS: CHLORIDE 105 mEq/L (98-107)
[2017-08-30 23:47] LABS: CARBON DIOXIDE 29 mEq/L (21-32); CREATINE KINASE 109 IU/L (39-308); ETHANOL BLOOD < 10 mg/dL
[2017-08-31] MEDS ORDERED: METOCLOPRAMIDE HCL 10MG/2ML VIAL IV ONE (00:15)
[2017-08-31] MEDS ORDERED: KETOROLAC 30MG/ML VIAL IM ONE (00:15)
[2017-08-31 02:58] VITALS: BP 121/73
[2017-09-12] MEDS ORDERED: IBUP-1636 PO (21:47)
[2017-09-12] MEDS ORDERED: ACET-2178 PO (21:47)
[2017-09-12] MEDS ORDERED: LISI-651 PO (21:47)
== END 2017-08-31 03:04 | disposition home or self-care (01) ==
LOC: ER 17:34
DX: F51.04 Psychophysiologic insomnia (principal); R11.2 Nausea with vomiting, unspecified; R07.9 Chest pain, unspecified; R51 Headache; R42 Dizziness and giddiness; M54.2 Cervicalgia; K59.00 Constipation, unspecified; I10 Essential (primary) hypertension; F41.9 Anxiety disorder, unspecified
CPT/HCPCS: 36415; 71010; 80053; 80305; 80307; 80329; 81003; 82550; 84443; 85025; 93005; 96372; 96374; 99285; G0482; J1885; J2765; Z7610

== ENCOUNTER 2017-08-31 10:37 | Emergency (ER) | payer MEDICAID ==
[~2017-08-31] VITALS: Ht 175.3 cm; Wt 80.0 kg
[2017-08-31] MEDS ORDERED: SODIUM CHLORIDE 0.9% 1,000 ML IV ONE ×2 (11:13→16:31)
[2017-08-31] MEDS ORDERED: ONDANSETRON HCL 4MG/2ML VIAL IV STA (11:13)
[2017-08-31 11:53] LABS: BASOPHILS % 1.3 % (0.0-2.0); HEMATOCRIT. 42.5 % (42.0-52.0); HEMOGLOBIN. 14.4 g/dL (14.0-18.0); LYMPHOCYTES % 15.2 % (20.0-50.0); MEAN CORPUSCULAR HEMOGLOBIN 32.8 pg (28.0-32.0); MEAN CORPUSCULAR VOLUME 96.6 fL (80.0-94.0); MEAN PLATELET VOLUME 7.3 fl (7.4-10.4); MONOCYTES % 6.1 % (2.0-8.0); NEUTROPHILS % 74.4 % (40.0-76.0); PLATELET 265 x1000/uL (130-400); RED CELL DISTRIBUTION WIDTH 14.3 % (11.6-14.6)
[2017-08-31 12:00] LABS: CHLORIDE 106 mEq/L (98-107)
[2017-08-31 12:06] LABS: AMMONIA 40 uMol/L (<32)
[2017-08-31 12:10] LABS: GLUCOSE URINE NEGATIVE (NEGATIVE); KETONES URINE NEGATIVE (NEGATIVE); LEUKOCYTE ESTERASE URINE NEGATIVE (NEGATIVE); NITRITE URINE NEGATIVE (NEGATIVE); OCCULT BLOOD URINE NEGATIVE (NEGATIVE); PROTEIN URINE NEGATIVE (NEGATIVE); SPECIFIC GRAVITY URINE 1.002 (1.005-1.030); UROBILINOGEN URINE 0.2 E.U./dL (0.2-1.0)
[2017-08-31 12:12] LABS: CLARITY URINE CLEAR (CLEAR); COLOR URINE STRAW (YELLOW)
[2017-08-31 12:14] LABS: CARBON DIOXIDE 31 mEq/L (21-32); CREATINE KINASE 97 IU/L (39-308); ETHANOL BLOOD < 10 mg/dL
[2017-08-31 12:18] LABS: CARBAMAZEPINE < 0.5 ug/mL (4-12); PHENOBARBITAL < 2.1 ug/mL (15.0-40.0)
[2017-08-31 12:26] LABS: *AMPHETAMINES SCREEN URINE NEGATIVE (NEGATIVE); *BARBITURATES SCREEN URINE NEGATIVE (NEGATIVE); *BENZODIAZEPINES SCREEN URINE NEGATIVE (NEGATIVE); *COCAINE SCREEN URINE NEGATIVE (NEGATIVE); CANNABINOID URINE SCREEN NEGATIVE (NEGATIVE); METHADONE URINE SCREEN NEGATIVE (NEGATIVE); OPIATES URINE SCREEN NEGATIVE (NEGATIVE); PHENCYCLIDINE URINE SCREEN NEGATIVE (NEGATIVE)
[2017-08-31] MEDS ORDERED: FAMOTIDINE 20MG/2ML VIAL IV ONE (13:00)
[2017-08-31] MEDS ORDERED: MAGNESIUM/ALUMINUM HYDROXIDE/SIMETHICONE 30ML UDC PO ONE (13:00)
[2017-08-31 14:44] LABS: TROPONIN I < 0.02 ng/mL (0.00-0.04)
[2017-08-31] MEDS ORDERED: KETOROLAC 30MG/ML VIAL IV ONE (14:45)
[2017-08-31 18:23] VITALS: BP 133/74
[2017-09-12] MEDS ORDERED: LISI-651 PO (21:47)
[2017-09-12] MEDS ORDERED: IBUP-1636 PO (21:47)
[2017-09-12] MEDS ORDERED: ACET-2178 PO (21:47)
== END 2017-08-31 18:26 | disposition home or self-care (01) ==
LOC: ER 11:06
DX: R53.1 Weakness (principal); F41.9 Anxiety disorder, unspecified; I10 Essential (primary) hypertension; E78.00 Pure hypercholesterolemia, unspecified
CPT/HCPCS: 36415; 71010; 80053; 80156; 80165; 80184; 80185; 80305; 81003; 82140; 82550; 82962; 83880; 84443; 84484; 85025; 93005; 96361; 96374; 96375; 99285; G0482; J1885; J2405; J3490; J7030; Z7610

== ENCOUNTER 2017-08-31 18:33 | Emergency (ER) | payer MEDICAID ==
[~2017-08-31] VITALS: Ht 175.3 cm; Wt 75.0 kg
[2017-09-01 00:29] VITALS: BP 103/63
[2017-09-12] MEDS ORDERED: IBUP-1636 PO (21:47)
[2017-09-12] MEDS ORDERED: LISI-651 PO (21:47)
[2017-09-12] MEDS ORDERED: ACET-2178 PO (21:47)
== END 2017-09-01 00:15 | disposition home or self-care (01) ==
LOC: ER 18:34
DX: F41.9 Anxiety disorder, unspecified (principal); I10 Essential (primary) hypertension
CPT/HCPCS: 93005; 99284

== ENCOUNTER 2017-09-03 12:54 | Emergency (ER) | payer MEDICAID ==
[~2017-09-03] VITALS: Ht 172.7 cm; Wt 70.0 kg
[2017-09-03] MEDS ORDERED: SODIUM CHLORIDE 0.9% 1,000 ML IV ONE (18:27)
[2017-09-03] MEDS ORDERED: ONDANSETRON HCL 4MG/2ML VIAL IV STA (18:27)
[2017-09-03] MEDS ORDERED: KETOROLAC 30MG/ML VIAL IV STA (18:27)
[2017-09-03 18:54] LABS: BASOPHILS % 0.9 % (0.0-2.0); HEMATOCRIT. 38.5 % (42.0-52.0); LYMPHOCYTES % 22.3 % (20.0-50.0); MEAN CORPUSCULAR VOLUME 97.7 fL (80.0-94.0); MEAN PLATELET VOLUME 7.8 fl (7.4-10.4); MONOCYTES % 7.7 % (2.0-8.0); NEUTROPHILS % 66.1 % (40.0-76.0); PLATELET 221 x1000/uL (130-400); RED BLOOD CELL COUNT 3.94 mill/uL (4.7-6.1); RED CELL DISTRIBUTION WIDTH 14.6 % (11.6-14.6)
[2017-09-03 18:55] LABS: CLARITY URINE CLEAR (CLEAR); COLOR URINE YELLOW (YELLOW); GLUCOSE URINE NEGATIVE (NEGATIVE); KETONES URINE NEGATIVE (NEGATIVE); LEUKOCYTE ESTERASE URINE NEGATIVE (NEGATIVE); NITRITE URINE NEGATIVE (NEGATIVE); OCCULT BLOOD URINE NEGATIVE (NEGATIVE); PH URINE 7.5 (4.5-8.0); PROTEIN URINE NEGATIVE (NEGATIVE); UROBILINOGEN URINE 0.2 E.U./dL (0.2-1.0)
[2017-09-03 18:56] LABS: CHLORIDE 106 mEq/L (98-107)
[2017-09-03 19:03] LABS: CARBON DIOXIDE 31 mEq/L (21-32); ETHANOL BLOOD < 10 mg/dL
[2017-09-03 19:06] LABS: *AMPHETAMINES SCREEN URINE NEGATIVE (NEGATIVE); *BARBITURATES SCREEN URINE NEGATIVE (NEGATIVE); *BENZODIAZEPINES SCREEN URINE NEGATIVE (NEGATIVE); *COCAINE SCREEN URINE NEGATIVE (NEGATIVE); CANNABINOID URINE SCREEN NEGATIVE (NEGATIVE); METHADONE URINE SCREEN NEGATIVE (NEGATIVE); OPIATES URINE SCREEN NEGATIVE (NEGATIVE); PHENCYCLIDINE URINE SCREEN NEGATIVE (NEGATIVE)
[2017-09-03 19:07] LABS: TROPONIN I < 0.02 ng/mL (0.00-0.04)
[2017-09-03 22:18] VITALS: BP 127/66
[2017-09-12] MEDS ORDERED: ACET-2178 PO (21:47)
[2017-09-12] MEDS ORDERED: IBUP-1636 PO (21:47)
[2017-09-12] MEDS ORDERED: LISI-651 PO (21:47)
== END 2017-09-03 22:31 | disposition home or self-care (01) ==
LOC: ER 13:22
DX: J06.9 Acute upper respiratory infection, unspecified (principal); R42 Dizziness and giddiness; R51 Headache; K29.00 Acute gastritis without bleeding; F41.9 Anxiety disorder, unspecified; I10 Essential (primary) hypertension
CPT/HCPCS: 36415; 70450; 71010; 80053; 80305; 81003; 84484; 85025; 87070; 87430; 93005; 96361; 96374; 96375; 99285; G0482; J1885; J2405; J7030; Z7610

== ENCOUNTER 2017-09-04 12:34 | Emergency (ER) | payer MEDICAID ==
[~2017-09-04] VITALS: Ht 175.3 cm; Wt 73.0 kg
[2017-09-04] MEDS ORDERED: IBUPROFEN 600MG TABLET PO ONE (20:30)
[2017-09-04 21:05] VITALS: BP 132/81
[2017-09-12] MEDS ORDERED: ACET-2178 PO (21:47)
[2017-09-12] MEDS ORDERED: IBUP-1636 PO (21:47)
[2017-09-12] MEDS ORDERED: LISI-651 PO (21:47)
== END 2017-09-04 21:28 | disposition home or self-care (01) ==
LOC: ER 12:46
DX: R51 Headache (principal); I10 Essential (primary) hypertension; R53.1 Weakness
CPT/HCPCS: 99283

== ENCOUNTER 2017-09-05 13:55 | Emergency (ER) | payer MEDICAID ==
[~2017-09-05] VITALS: Ht 167.6 cm; Wt 80.0 kg
[2017-09-05] MEDS ORDERED: SODIUM CHLORIDE 0.9% 1,000 ML IV ONE (21:37)
[2017-09-05] MEDS ORDERED: ONDANSETRON HCL 4MG/2ML VIAL IV STA (21:37)
[2017-09-05] MEDS ORDERED: MORPHINE SULFATE 4 MG/ML CPJ (NOT FOR IM USE) IV STA (21:37)
[2017-09-05] MEDS ORDERED: METOCLOPRAMIDE HCL 10MG/2ML VIAL IV ONE (21:45)
[2017-09-05 21:56] LABS: BASOPHILS % 1.1 % (0.0-2.0); EOSINOPHILS % 1.9 % (0.0-5.0); HEMATOCRIT. 38.4 % (42.0-52.0); HEMOGLOBIN. 12.9 g/dL (14.0-18.0); LYMPHOCYTES % 22.8 % (20.0-50.0); MEAN CORPUSCULAR HEMOGLOBIN 32.5 pg (28.0-32.0); MEAN CORPUSCULAR VOLUME 96.3 fL (80.0-94.0); MEAN PLATELET VOLUME 7.1 fl (7.4-10.4); NEUTROPHILS % 66.2 % (40.0-76.0); PLATELET 222 x1000/uL (130-400); RED BLOOD CELL COUNT 3.99 mill/uL (4.7-6.1); RED CELL DISTRIBUTION WIDTH 14.4 % (11.6-14.6)
[2017-09-05 21:59] LABS: CHLORIDE 106 mEq/L (98-107)
[2017-09-05 22:04] LABS: CLARITY URINE CLEAR (CLEAR); COLOR URINE YELLOW (YELLOW); GLUCOSE URINE NEGATIVE (NEGATIVE); KETONES URINE NEGATIVE (NEGATIVE); LEUKOCYTE ESTERASE URINE NEGATIVE (NEGATIVE); NITRITE URINE NEGATIVE (NEGATIVE); OCCULT BLOOD URINE NEGATIVE (NEGATIVE); PROTEIN URINE NEGATIVE (NEGATIVE); SPECIFIC GRAVITY URINE 1.008 (1.005-1.030); UROBILINOGEN URINE 0.2 E.U./dL (0.2-1.0)
[2017-09-05 22:07] LABS: PROTHROMBIN TIME 10.7 sec (9.4-11.6)
[2017-09-05 22:08] LABS: CARBON DIOXIDE 30 mEq/L (21-32)
[2017-09-05 22:25] LABS: *AMPHETAMINES SCREEN URINE NEGATIVE (NEGATIVE); *BARBITURATES SCREEN URINE NEGATIVE (NEGATIVE); *BENZODIAZEPINES SCREEN URINE NEGATIVE (NEGATIVE); *COCAINE SCREEN URINE NEGATIVE (NEGATIVE); CANNABINOID URINE SCREEN NEGATIVE (NEGATIVE); METHADONE URINE SCREEN NEGATIVE (NEGATIVE); OPIATES URINE SCREEN NEGATIVE (NEGATIVE); PHENCYCLIDINE URINE SCREEN NEGATIVE (NEGATIVE)
[2017-09-05] MEDS ORDERED: MORPHINE SULFATE 10 MG/ML CPJ IV NR (22:45)
[2017-09-05] MEDS ORDERED: DIPHENHYDRAMINE 50MG/ML VIAL IV ONE (23:15)
[2017-09-06 01:07] VITALS: BP 118/80
[2017-09-12] MEDS ORDERED: IBUP-2321 PO (21:47)
[2017-09-12] MEDS ORDERED: LISI-651 PO (21:47)
[2017-09-12] MEDS ORDERED: ACET-2178 PO (21:47)
== END 2017-09-06 01:07 | disposition home or self-care (01) ==
LOC: ER 13:55
DX: R51 Headache (principal); I10 Essential (primary) hypertension
CPT/HCPCS: 36415; 70450; 71010; 80053; 80305; 81003; 83690; 85025; 85610; 93005; 96361; 96374; 96375; 99285; J2270; J2405; J2765; J7030; Z7610; J1200

== ENCOUNTER 2017-09-10 15:31 | Emergency (ER) | payer MEDICAID ==
[~2017-09-10] VITALS: Ht 175.3 cm; Wt 74.0 kg
[2017-09-10] MEDS ORDERED: ONDANSETRON 4MG ODT PO ONE (22:45)
[2017-09-10] MEDS ORDERED: IBUPROFEN 600MG TABLET PO ONE (22:45)
[2017-09-10 22:58] LABS: BASOPHILS % 1.2 % (0.0-2.0); EOSINOPHILS % 2.8 % (0.0-5.0); HEMATOCRIT. 39.9 % (42.0-52.0); HEMOGLOBIN. 13.5 g/dL (14.0-18.0); LYMPHOCYTES % 19.5 % (20.0-50.0); MEAN CORPUSCULAR HEMOGLOBIN 32.5 pg (28.0-32.0); MEAN PLATELET VOLUME 7.3 fl (7.4-10.4); NEUTROPHILS % 66.5 % (40.0-76.0); PLATELET 239 x1000/uL (130-400); RED BLOOD CELL COUNT 4.16 mill/uL (4.7-6.1); RED CELL DISTRIBUTION WIDTH 14.7 % (11.6-14.6)
[2017-09-10 23:01] LABS: CHLORIDE 105 mEq/L (98-107)
[2017-09-10 23:04] VITALS: BP 133/81
[2017-09-10 23:10] LABS: CARBON DIOXIDE 30 mEq/L (21-32)
[2017-09-10 23:57] LABS: CLARITY URINE CLEAR (CLEAR); COLOR URINE YELLOW (YELLOW); GLUCOSE URINE NEGATIVE (NEGATIVE); KETONES URINE NEGATIVE (NEGATIVE); LEUKOCYTE ESTERASE URINE NEGATIVE (NEGATIVE); NITRITE URINE NEGATIVE (NEGATIVE); OCCULT BLOOD URINE NEGATIVE (NEGATIVE); PH URINE 6.5 (4.5-8.0); PROTEIN URINE NEGATIVE (NEGATIVE); SPECIFIC GRAVITY URINE 1.009 (1.005-1.030); UROBILINOGEN URINE 0.2 E.U./dL (0.2-1.0)
[2017-09-11 00:43] LABS: *AMPHETAMINES SCREEN URINE NEGATIVE (NEGATIVE); *BARBITURATES SCREEN URINE NEGATIVE (NEGATIVE); *BENZODIAZEPINES SCREEN URINE NEGATIVE (NEGATIVE); *COCAINE SCREEN URINE NEGATIVE (NEGATIVE); CANNABINOID URINE SCREEN NEGATIVE (NEGATIVE); METHADONE URINE SCREEN NEGATIVE (NEGATIVE); OPIATES URINE SCREEN NEGATIVE (NEGATIVE); PHENCYCLIDINE URINE SCREEN NEGATIVE (NEGATIVE)
[2017-09-12] MEDS ORDERED: IBUP-1636 PO (21:47)
[2017-09-12] MEDS ORDERED: LISI-651 PO (21:47)
[2017-09-12] MEDS ORDERED: ACET-2178 PO (21:47)
== END 2017-09-11 01:40 | disposition home or self-care (01) ==
LOC: ER 15:31
DX: R53.1 Weakness (principal); R07.9 Chest pain, unspecified; I10 Essential (primary) hypertension; E78.00 Pure hypercholesterolemia, unspecified
CPT/HCPCS: 36415; 80053; 80305; 81003; 85025; 93005; 99285; Q0162